=== PATIENT | male | born 1955 | race Caucasian/White ===

== ENCOUNTER 2020-12-27 08:58 | Outpatient (CLI) | payer MEDICARE, BC | END 2020-12-27 23:59 | disposition home or self-care (01) | LOC: RAD 08:58 | PROVIDERS: ATTEND Family Medicine | DX: K80.20 Calculus of gallbladder without cholecystitis without obstruction (principal) | CPT/HCPCS: 76700 ==

== ENCOUNTER 2021-01-02 08:47 | Outpatient (CLI) | payer MEDICARE, BC | END 2021-01-02 23:59 | disposition home or self-care (01) | LOC: RAD 08:47 | PROVIDERS: ATTEND Family Medicine | DX: K80.20 Calculus of gallbladder without cholecystitis without obstruction (principal); K86.89 Other specified diseases of pancreas | CPT/HCPCS: 74181 ==